=== PATIENT | female | born 1950 | race Caucasian/White ===

== ENCOUNTER 2019-12-04 21:25 | Inpatient (IN) | payer MEDICARE ==
[~2019-12-04] VITALS: Ht 170.2 cm; Wt 83.9 kg
[2019-12-04] MEDS ORDERED: ACETAMINOPHEN 325 MG TABLET PO PRN (23:30)
[2019-12-04] MEDS ORDERED: MAG HYDROX/AL HYDROX/SIMETH 30 ML UDC PO PRN (23:30)
[2019-12-04] MEDS ORDERED: ASPI-992 PO (23:35)
[2019-12-04] MEDS ORDERED: AMLO5TAB9 PO (23:36)
[2019-12-04] MEDS ORDERED: FLUO20CA42 PO (23:37)
[2019-12-04] MEDS ORDERED: LEVO150T8 PO (23:38)
[2019-12-04] MEDS ORDERED: CLON0.5T4 PO (23:39)
[2019-12-04] MEDS ORDERED: TRIA1TAB3 PO (23:40)
[2019-12-04] MEDS ORDERED: ROSU20TA32 PO (23:41)
[2019-12-04] MEDS ORDERED: LOSA50TA39 PO (23:42)
[2019-12-04] MEDS ORDERED: CLON0.1T PO (23:44)
[2019-12-04] MEDS ORDERED: BLOOD SUGAR DIAGNOSTIC 1 EACH STRIP IN ONE (23:45)
[2019-12-04] MEDS ORDERED: LEVO125T8 PO (23:46)
[2019-12-05 00:08] VITALS: BP 126/77
[2019-12-05] MEDS: TEMAZEPAM 7.5 MG CAPSULE PO PRN (00:17)
--- NOTE | 2019-12-05 00:20 | NUR ---
GPS RN NOTE: ADMITTING NOTE PT ARRIVED ON THE UNIT AT 22:45 ON 12/04/19, PT IS A 69 Y/O FEMALE THAT CAME FROM [facility], PT IS A ON A 5150 DUE TO GD, PER HOLD PT PRESENTED WITH DISORGANIZED THOUGHT PROCESS, LABILE, HYPERFOCUSED ON THAT SHE CLAIMS IS "COMMITTING TAX EVASION AND SHOULD BE IN ASSISTED" AND THAT HE DOES NOT LISTEN AND GIVES HER PROZAC PT STATED SHE HAS NOT BEEN SLEEPING THE LAST SEVERAL DAYS AND HAS NOT BEEN COMPLIANT WITH HER PSYCHOTROPIC MEDICATION AND HAS BEEN HAVING SOME DELUSIONAL THOUGHTS. PT IS A/OX X3, TEARFUL, WITHDRAWN, ISOLATIVE, GUARDED, FLAT, BLUNT AFFECT. PT HAS MEDICAL HX OF HTN, HYPOTHYROIDISM WELL HAVING A STROKE 2 YEARS AGO. PT HAS L SIDE MILD WEAKNESS, R SIDE HAS NO IMPAIRMENT, PT IS GAIT IS STEADY WITH ASSISTANCE, WALKER IS PLACED AT BEDSIDE, BED ALARM ON, BED IN LOCKED AND LOWEST POSITION, FALL PRECAUTIONS IMPLEMENTED. WHEN ASKING PT REASON FOR HOSPITALIZATION PT CONTINUES TO STATE "I SHOULDN'T BE HERE THIS IS A MISTAKE, MY BELONGS HERE". PT LIVES WITH HAS TWO DAUGHTERS WHO ARE OLDER AND HAVE MOVED OUT, PT STATES SHE STRUGGLES WITH DEPRESSION AND ANXIETY AT TIMES. PT STATED SHE AT TIMES HAS AUDITORY HALLUCINATIONS SHE STATES "SOMETIMES I HEAR VOICES TALK TO ME OR I HEAR SOMETHING THAT IS UPSTAIRS THAT ISN'T UPSTAIRS. PT DENIES FLU VACCINE, PT STATES "IT GETS ME SO SICK TO A POINT WHERE IT WILL PUT ME IN THE HOSPITAL, I DONT WANT IT". PT STATED SHE RECEIVED THE PNA VACCINE SOMETIMES THIS YEAR BUT CAN NOT REMEMBER WHEN. PT DENIES SI/HI, DENIES PAIN, STATES SHE HAS DIFFICULTY SLEEPING AND REQUESTED MEDICATION FOR THE INSOMNIA, ALL NEEDS MET AT THIS TIME. PT IS ADVISED OF THE HOLD, PTS RIGHT AND MEDICATION EDUCATION BOOKLET GIVEN TO THE PT AT BEDSIDE, PT IS MADE AWARE OF THE UNIT. PT WILL BE UNDER THE PSYCHIATRIC CARE OF DR. TIM AND MEDICAL CARE OF DR. RAMESH, WILL CONTINUE TO MONITOR THE PT Q15 MIN FOR SAFETY AND BEHAVIOR. Addendum: 12/05/19 at 0044 by ADONAY MERCEDES RN PT SIGNED NONDISCLOSURE SLIP, PT WISHED TO NOT HAVE OR FAMILY NOTIFIED REGARDING HER HOSPITALIZATION.
[2019-12-05] MEDS ORDERED: CLONIDINE HCL 0.1 MG TABLET PO PRN (00:30)
--- NOTE | 2019-12-05 00:37 | NUR ---
GPS RN NOTE: FLU VACCINE REFUSAL PT DENIES FLU VACCINE, PT STATES "IT GETS ME SO SICK TO A POINT WHERE IT WILL PUT ME IN THE HOSPITAL, I DONT WANT IT". PT STATED SHE RECEIVED THE PNA VACCINE SOMETIMES THIS YEAR BUT CAN NOT REMEMBER WHEN. WILL CONTINUE TO MONITOR Q15MIN FOR SAFETY AND BEHAVIOR.
--- NOTE | 2019-12-05 00:38 | NUR ---
GPS RN NOTE: INSOMNIA PT C/O OF INSOMNIA AND REQUESTED MEDICATION FOR IT, ADMINISTERED RESTORIL PRN AT 0017, WILL REASSESS AND CONTINUE TO MONITOR Q15MIN FOR SAFETY AND BEHAVIOR.
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
[2019-12-05] MEDS: clonazePAM 0.5 MG TABLET PO PRN ×2 (03:33→16:08)
--- NOTE | 2019-12-05 03:38 | NUR ---
GPS RN NOTE: ANXIETY PT REQUESTED KLONOPIN PRN TO HELP WITH HER RESTLESSNESS AND ANXIETY, ADMIN KLONOPIN PRN @ 0333, WILL REASSESS AND CONTINUE TO MONITOR Q15MIN FOR SAFETY AND BEHAVIOR,
[2019-12-05 06:41] LABS: BASOPHILS % (AUTO) 0.6 % (0.0-2.0); EOSINOPHILS % (AUTO) 4.4 % (0.0-6.0); HEMATOCRIT 43 % (33-45); HEMOGLOBIN 14.2 g/dL (11.5-14.8); LYMPHOCYTES # (AUTO) 2.4 /CMM (0.8-4.8); LYMPHOCYTES % (AUTO) 34.1 % (20.0-44.0); MEAN CORPUSCULAR HGB CONC 33 g/dl (31.0-36.0); MEAN CORPUSCULAR VOLUME 89 fL (82-100); MONOCYTES # (AUTO) 0.7 /CMM (0.1-1.30); MONOCYTES % (AUTO) 10.4 % (2.0-12.0); NEUTROPHILS # (AUTO) 3.5 /CMM (1.8-8.9); NEUTROPHILS % (AUTO) 50.5 % (43.0-81.0); PLATELET COUNT (AUTO) 287 /CMM (150-450); RED BLOOD CELL COUNT(AUTO) 4.77 MIL/uL (4.0-5.2)
[2019-12-05 07:12] LABS: CALCIUM, SERUM 9.7 mg/dL (8.5-10.1); CREATININE 0.8 mg/dL (0.6-1.3); POTASSIUM 4.3 mmol/L (3.5-5.1)
[2019-12-05 07:21] LABS: THYROID STIMULATING HORMONE 1.178 uIU/mL (0.358-3.74)
[2019-12-05] MEDS: LEVOTHYROXINE SODIUM 125 MCG TABLET PO SCH (07:53)
[2019-12-05 08:00] VITALS: BP 152/90
--- NOTE | 2019-12-05 08:04 | NUR ---
Dr. Chambers gave an order to change service to Dr. Pichardo.
[2019-12-05] MEDS: ASPIRIN 325 MG TABLET PO SCH (08:48)
[2019-12-05] MEDS: LOSARTAN POTASSIUM 50 MG TABLET PO SCH (08:48)
--- NOTE | 2019-12-05 10:29 | NUR ---
CONSENT: Pt signed Non-Disclosure of information form. However, per [facility] guidelines, SW has to notify of pts admission and provide information due to pt being placed on a 5150 hold for [facility]. is also pts DPOA.
--- NOTE | 2019-12-05 11:06 | NUR ---
INITIAL DISCHARGE PLAN: Pt currently resides with her at address on face sheet ([address] [place] [address]; [phone]). Per pt she would like to return home when cleared for discharge by psychiatric staff. Per Kyrie ([phone]), he does not want pt to be discharged to a SNF or other stepdown facility. JAMEEL will collaborate with for safe and proper discharge plan.
--- NOTE | 2019-12-05 11:08 | NUR ---
FAMILY CONTACT: SW contacted pt's Kyrie ([phone]) who reports desire for pt to be discharged to [facility] for further evaluation, but is agreeable to discharge back to home if pt is unable to discharge to [facility]. JAMEEL explained difficulty in transfering pt from hospital to hospital and obtained agreement from Kyrie for pt to return home if in stable condition. Pt's Kyrie is adament that pt's neurological MD, Dr. Sixto Lozano ([phone]), be involved in pt's care. JAMEEL will continue to work with pt, pt's , and [facility] staff to devise appropriate and safe discharge plan. SW to remain available to check in with patient as time permits.
[2019-12-05] MEDS: TRIAMTERENE/HYDROCHLOROTHIAZID (37.5/25MG) 1 UDCAP PO SCH (11:44)
[2019-12-05 16:00] VITALS: BP_SYST 151; BP_SYST 88; BP_DIAS 51; BP_DIAS 81
--- NOTE | 2019-12-05 16:10 | NUR ---
Pt. is anxious and tearful. Klonopin 0.5 mg po prn given.
[2019-12-05] MEDS: AMLODIPINE BESYLATE 5 MG TABLET PO SCH (17:47)
[2019-12-05 19:53] VITALS: BP 125/69
[2019-12-05] MEDS: risperiDONE 1 MG TABLET PO SCH (21:00)
[2019-12-05] MEDS: ATORVASTATIN 40 MG TABLET PO SCH (21:43)
[2019-12-05] MEDS: MAGNESIUM HYDROXIDE 30 ML UDC PO PRN (22:01)
--- NOTE | 2019-12-05 22:06 | NUR ---
GPS RN NOTE: CONSTIPATION PT STATED SHE HAS NOT HAD A BM FOR SEVERAL DAYS REQUESTED SOMETHING FOR IT,OFFERED PRUNE JUICE PT DECLINED, PT TOOK MILK OF MAGNESIA FORREST @ 2201, WILL REASSESS AND CONTINUE TO MONITOR Q15MIN FOR SAFETY AND BEHAVIOR
[2019-12-06] MEDS: clonazePAM 0.5 MG TABLET PO PRN ×2 (02:07→08:22)
--- NOTE | 2019-12-06 02:12 | NUR ---
GPS RN NOTE: ANXIETY PT WOKE UP TEARFUL, ANXIOUS, IRRITABLE, OFFERED KLONOPIN, ADMIN BARTOLO PRN @ 1248, WILL REASSESS AND CONTINUE TO MONITOR Q15MIN FOR SAFETY AND BEHAVIOR.
[2019-12-06] MEDS: LEVOTHYROXINE SODIUM 125 MCG TABLET PO SCH (07:45)
[2019-12-06 08:00] VITALS: BP 146/75
[2019-12-06] MEDS: FLUOXETINE HCL 20 MG CAPSULE PO SCH (08:22)
[2019-12-06] MEDS: risperiDONE 1 MG TABLET PO SCH ×2 (08:22→21:15)
[2019-12-06] MEDS: ASPIRIN 325 MG TABLET PO SCH (08:22)
[2019-12-06] MEDS: LOSARTAN POTASSIUM 50 MG TABLET PO SCH (08:25)
[2019-12-06] MEDS: TRIAMTERENE/HYDROCHLOROTHIAZID (37.5/25MG) 1 UDCAP PO SCH (08:25)
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
--- NOTE | 2019-12-06 09:00 | NUR ---
RN NOTE- PT CRYING, ANXIOUS, STATING COMMITTED CRIMES, PO INTAKE FAIR, MED COMPLIANT, DENYING SI HI AH VH WITHDRAWN, CONFUSED
--- NOTE | 2019-12-06 09:15 | NUR ---
Dr. Colin in the unit and read the [facility] Directives and per MD pt. is still full code. Per pt. doesn't have terminal disease.
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
[2019-12-06 16:03] VITALS: BP 120/71
[2019-12-06] MEDS: AMLODIPINE BESYLATE 5 MG TABLET PO SCH (17:25)
[2019-12-06 19:36] VITALS: BP 107/57
[2019-12-06 19:41] VITALS: BP 107/57
--- NOTE | 2019-12-06 21:15 | NUR ---
GPS RN NOTE: SEEN BY DR. MASSEY PATIENT WAS SEEN BY DR. MASSEY WITH NO NEW ORDER TONIGHT.
[2019-12-06] MEDS: ATORVASTATIN 40 MG TABLET PO SCH (21:35)
--- NOTE | 2019-12-07 05:15 | NUR ---
GPS RN NOTE PATIENT'S NENO RODRIGUEZ CALLED TO GET AN UPDATE REGARDING PATIENT'S CONDITION & STATED THAT HE WOULD CALL BACK AGAIN DURING DAY TIME. NENO ALSO LIKES TO BE NOTIFIED IF THERE IS ANY MED CHANGE. WILL ENDORSE TO AM RN.
[2019-12-07 08:02] VITALS: BP 120/66
[2019-12-07] MEDS: TRIAMTERENE/HYDROCHLOROTHIAZID (37.5/25MG) 1 UDCAP PO SCH (09:00)
[2019-12-07] MEDS: LEVOTHYROXINE SODIUM 125 MCG TABLET PO SCH (09:19)
[2019-12-07] MEDS: ASPIRIN 325 MG TABLET PO SCH (09:19)
[2019-12-07] MEDS: risperiDONE 1 MG TABLET PO SCH ×2 (09:20→20:56)
[2019-12-07] MEDS: LOSARTAN POTASSIUM 50 MG TABLET PO SCH (09:20)
[2019-12-07] MEDS: FLUOXETINE HCL 20 MG CAPSULE PO SCH (09:23)
[2019-12-07] MEDS: clonazePAM 0.5 MG TABLET PO PRN (11:06)
--- NOTE | 2019-12-07 11:16 | NUR ---
teary eyed and ruminating about stroke and home situation.medicated with klonopin 0.5 mg po.
[2019-12-07 14:50] VITALS: BP 89/60
--- NOTE | 2019-12-07 14:50 | NUR ---
pt. sluggish and is getting up to commode to void with assistance.bp 89/60 heart rate 65,pox 96%.pt. quickly assisted back to bed,then put in supine position.alert and oriented x3.weak.
[2019-12-07 14:53] VITALS: BP 116/60
--- NOTE | 2019-12-07 14:53 | NUR ---
assisted back to bed vs retaken.cold cloth to head,states a little pain in rt. eye.
[2019-12-07] MEDS: MAGNESIUM HYDROXIDE 30 ML UDC PO PRN (15:52)
[2019-12-07 16:00] VITALS: BP 104/64
--- NOTE | 2019-12-07 16:40 | NUR ---
given mom,states no bm for sometime.
[2019-12-07] MEDS: AMLODIPINE BESYLATE 5 MG TABLET PO SCH (16:47)
--- NOTE | 2019-12-07 19:53 | NUR ---
radio program checker initial notes received report from am nurse and seen pt in bed resting comfortably calmed and quiet . no signs of any distress noted. kept her warm and comfortable at all times. will continue Q 15 minutes monitoring for safety and behavior.
[2019-12-07 20:05] VITALS: BP 114/64
[2019-12-07] MEDS: ATORVASTATIN 40 MG TABLET PO SCH (20:56)
--- NOTE | 2019-12-08 06:54 | NUR ---
student life dean closing notes pt remain sleeping , not in any distress noted. Stable throughout the night and no behavioral issue to report at this time. Compliance with her medication and all due meds given. slept well. kept her warm and comfortable at all times. will continue Q 15 minutes monitoring for safety and behavior. will endorse to am nurse for continuity of care.
[2019-12-08] MEDS: LEVOTHYROXINE SODIUM 125 MCG TABLET PO SCH (07:43)
[2019-12-08 08:00] VITALS: BP 134/86
[2019-12-08] MEDS: FLUOXETINE HCL 20 MG CAPSULE PO SCH (08:23)
[2019-12-08] MEDS: ASPIRIN 325 MG TABLET PO SCH (08:23)
[2019-12-08] MEDS: clonazePAM 0.5 MG TABLET PO PRN (08:23)
[2019-12-08] MEDS: risperiDONE 1 MG TABLET PO SCH ×2 (08:23→21:00)
[2019-12-08] MEDS: LOSARTAN POTASSIUM 50 MG TABLET PO SCH (08:23)
--- NOTE | 2019-12-08 08:24 | NUR ---
RN NOTE- ANXIETY CONTINUED STRESS AND AGITATION REGARDING , KLONOPIN 0.5 MG GIVEN
[2019-12-08] MEDS: TRIAMTERENE/HYDROCHLOROTHIAZID (37.5/25MG) 1 UDCAP PO SCH (08:25)
--- NOTE | 2019-12-08 09:00 | NUR ---
RN NOTE- PT PARANOID, CONFUSED WITH DISORGANIZED THOUGHTS, DENIES ALL, FOCUS ON ,"HES A CRIMINAL" REDIRECTION PRN
--- NOTE | 2019-12-08 10:00 | NUR ---
RN SID- BARTOLO EFFECTIVELY DECREASED ANXIETY. PT RESTING QUIETLY
[2019-12-08] MEDS: MAGNESIUM HYDROXIDE 30 ML UDC PO PRN (11:06)
--- NOTE | 2019-12-08 11:06 | NUR ---
RN NOTE- C/O NO BM X THREE DAYS. MOM 30 CC GIVEN. WILL CONTACT MD IF INEFFECTIVE THIS IS SECOND ADMINISTRATION MOM
[2019-12-08] MEDS ORDERED: MAGNESIUM CITRATE 296 ML BOTTLE PO ONE (11:30)
--- NOTE | 2019-12-08 12:28 | NUR ---
RN NOTE- NO BM RESULTS W MOM. MAG CITRATE GIVEN AT THIS TIME
[2019-12-08 16:00] VITALS: BP 125/75
--- NOTE | 2019-12-08 16:00 | NUR ---
RN NOTE- NO BM W MAG CITRATE ADMINISTRATION. PT WANTS TO EAT DINNER BEFORE FURTHER INTERVENTIONS
[2019-12-08] MEDS: AMLODIPINE BESYLATE 5 MG TABLET PO SCH (17:37)
--- NOTE | 2019-12-08 19:38 | NUR ---
GPS RN OPENING NOTES PATIENT RECEIVED RESTING IN BED COMFORTABLY; A/OX2-3, AWAKE, IN BED; CALM AND COOPERATIVE; NO COMPLAINTS OF PAIN AT THIS TIME; NO DISTRESS NOTED; PATIENT DENIES SI/HI AT THIS TIME; PATIENT TOLERATING ROOM AIR WELL; NO SOB NOTED; BREATHING EVEN AND UNLABORED; PATIENT EDUCATED ON USE OF CALL LIGHT, SAFETY PRECAUTIONS IMPLEMENTED; BED LOCKED IN LOW POSITION; SIDE RAILSX2; WILL CONTINUE TO MONITOR Q15 MINS WITH THE HELP OF STAFF TO MAINTAIN SAFETY
[2019-12-08 20:00] VITALS: BP 149/79
[2019-12-08] MEDS: ATORVASTATIN 40 MG TABLET PO SCH (21:02)
[2019-12-09] MEDS: LEVOTHYROXINE SODIUM 125 MCG TABLET PO SCH (07:20)
[2019-12-09 08:00] VITALS: BP 130/74
[2019-12-09] MEDS: FLUOXETINE HCL 20 MG CAPSULE PO SCH (08:27)
[2019-12-09] MEDS: TRIAMTERENE/HYDROCHLOROTHIAZID (37.5/25MG) 1 UDCAP PO SCH (08:27)
[2019-12-09] MEDS: risperiDONE 1 MG TABLET PO SCH ×2 (08:28→20:23)
[2019-12-09] MEDS: LOSARTAN POTASSIUM 50 MG TABLET PO SCH (08:28)
[2019-12-09] MEDS: ASPIRIN 325 MG TABLET PO SCH (08:28)
--- NOTE | 2019-12-09 09:00 | NUR ---
RN NOTE- BETTER THIS MORNING, INTERACTIVE, OUT OF BED AND WALKING IN HALLS W FWW, STEADY GAIT, MED COMPLIANT, PO INTAKE FAIR THIS MORNING. STILL W PERSISTENT DELUSION BELIEVES HER IS CAUSING HER TO BE KELP IN HOSPITAL . REASSURED THIS IS NOT THE CASE. REALITY ORIENTATION
[2019-12-09 16:00] VITALS: BP 106/61
[2019-12-09] MEDS: AMLODIPINE BESYLATE 5 MG TABLET PO SCH (17:11)
[2019-12-09 19:44] VITALS: BP 106/91
[2019-12-09 20:04] VITALS: BP 106/61
[2019-12-09] MEDS: ATORVASTATIN 40 MG TABLET PO SCH (20:23)
--- NOTE | 2019-12-09 21:00 | NUR ---
PARANOID WHEN GIVEN HER RISPERADOL AND ORDERED LIPITOR SHE QUESTIONED IF THESES WERE ORDERED BY THE DOCTOR, AND IF THEY WERE MEDICATIONS ON HER LIST, SHE PROCEEDED TO CHECK HER HER LIST, AND ASKING IF SHE HAD THEM BEFORE. SHE STATED "RISPERADOL CAN CAUSE ME TO HAVE A STROKE", REASSURED HER THE MD IS AWARE OF HER HX AND HE IS THE ONE WHO ORDERED RISPERADOL. SHE DID TAKE HER PM MEDICATION AND DID REQUEST A SLEEPING PILL, RETORIL GIVEN AND EFFECTIVE.
[2019-12-09] MEDS: TEMAZEPAM 7.5 MG CAPSULE PO PRN (21:25)
[2019-12-10] MEDS: LEVOTHYROXINE SODIUM 125 MCG TABLET PO SCH (07:10)
[2019-12-10 08:00] VITALS: BP 142/76
[2019-12-10] MEDS: risperiDONE 1 MG TABLET PO SCH ×2 (08:21→20:19)
[2019-12-10] MEDS: FLUOXETINE HCL 20 MG CAPSULE PO SCH (08:21)
[2019-12-10] MEDS: ASPIRIN 325 MG TABLET PO SCH (08:21)
[2019-12-10] MEDS: TRIAMTERENE/HYDROCHLOROTHIAZID (37.5/25MG) 1 UDCAP PO SCH (08:27)
[2019-12-10] MEDS: LOSARTAN POTASSIUM 50 MG TABLET PO SCH (08:27)
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
--- NOTE | 2019-12-10 14:17 | NUR ---
Family Contact: SW contacted pt's Kyrie ([phone]) and left a voicemail message stating that the SW would like to speak to him regarding the pts treatment.
--- NOTE | 2019-12-10 15:55 | NUR ---
Family Contact: SW contacted pt's Kyrie ([phone]) and inquired about the pts discharge plan. Pts provided a full history of the pt and then informed the SW that he only wants the pt home if she is stable at the time of discharge. At this point in time he stated that based off of the nursing reports she cannot come home. SW stated that they will need to find alternative placement just in case and she stated that she speak to the pts primary MD about assisted recommendations as the pts only trusts the pts MD. SW stated that she will keep him updated.
[2019-12-10 16:00] VITALS: BP 108/46
[2019-12-10] MEDS: AMLODIPINE BESYLATE 5 MG TABLET PO SCH (18:00)
[2019-12-10 19:57] VITALS: BP 114/57
[2019-12-10] MEDS: ATORVASTATIN 40 MG TABLET PO SCH (21:26)
[2019-12-10] MEDS: TEMAZEPAM 7.5 MG CAPSULE PO PRN (21:27)
--- NOTE | 2019-12-10 21:35 | NUR ---
GPS RN NOTE: INSOMNIA PT C/O OF INSOMNIA AND ASKED IF SHE CAN TAKE HER SLEEPING MEDICATION, VSS, ADMIN RESTORIL @ 2126, WILL REASSESS AND CONTINUE TO MONITOR Q15MIN FOR SAFETY AND BEHAVIOR
[2019-12-11] MEDS: LEVOTHYROXINE SODIUM 125 MCG TABLET PO SCH (06:35)
[2019-12-11] MEDS: clonazePAM 0.5 MG TABLET PO PRN (06:35)
--- NOTE | 2019-12-11 07:10 | NUR ---
GPS RN NOTE: ANXIETY PT WAS C/O OF RESTLESNESS, ANXIETY, ADMIN KLONOPIN PRN , WILL REASSESS AND CONTINUE TO MONITOR Q15MIN FOR SAFETY AND BEHAVIOR.
[2019-12-11 08:00] VITALS: BP 141/76
[2019-12-11] MEDS: TRIAMTERENE/HYDROCHLOROTHIAZID (37.5/25MG) 1 UDCAP PO SCH (10:19)
[2019-12-11] MEDS: ASPIRIN 325 MG TABLET PO SCH (10:19)
[2019-12-11] MEDS: FLUOXETINE HCL 20 MG CAPSULE PO SCH (10:20)
[2019-12-11] MEDS: risperiDONE 1 MG TABLET PO SCH ×2 (10:20→20:21)
--- NOTE | 2019-12-11 10:43 | NUR ---
Family Contact: Pt's Kyrie ([phone]) called the SW and stated that he understands that there is a medication change for the pt that he understands will assist with the pts psychosis and that he does not trust SNF and so he would rather take the pt home at the time of discharge.
[2019-12-11] MEDS: LOSARTAN POTASSIUM 50 MG TABLET PO SCH (12:45)
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
[2019-12-11 16:00] VITALS: BP 126/80
[2019-12-11] MEDS: AMLODIPINE BESYLATE 5 MG TABLET PO SCH (17:49)
--- NOTE | 2019-12-11 18:00 | NUR ---
MED COMPLIANT,COOPERATIVE AND LESS ISOLATIVE.
[2019-12-11 20:00] VITALS: BP 132/77
[2019-12-11] MEDS: ATORVASTATIN 40 MG TABLET PO SCH (21:32)
[2019-12-12 08:00] VITALS: BP 128/58
[2019-12-12] MEDS: ASPIRIN 325 MG TABLET PO SCH (08:33)
[2019-12-12] MEDS: LOSARTAN POTASSIUM 50 MG TABLET PO SCH (08:33)
[2019-12-12] MEDS: risperiDONE 1 MG TABLET PO SCH ×2 (08:34→20:57)
[2019-12-12] MEDS: LEVOTHYROXINE SODIUM 125 MCG TABLET PO SCH (08:34)
[2019-12-12] MEDS: FLUOXETINE HCL 20 MG CAPSULE PO SCH (08:34)
[2019-12-12] MEDS: TRIAMTERENE/HYDROCHLOROTHIAZID (37.5/25MG) 1 UDCAP PO SCH (08:37)
[2019-12-12 11:24] VITALS: BP 121/68
[2019-12-12 16:00] VITALS: BP 143/72
[2019-12-12 17:37] VITALS: BP 128/64
[2019-12-12] MEDS: AMLODIPINE BESYLATE 5 MG TABLET PO SCH (17:37)
[2019-12-12 20:19] VITALS: BP 138/68
[2019-12-12] MEDS: ATORVASTATIN 40 MG TABLET PO SCH (21:01)
[2019-12-12] MEDS: TEMAZEPAM 7.5 MG CAPSULE PO PRN (23:02)
--- NOTE | 2019-12-12 23:02 | NUR ---
GPS-RN NOTE: INSOMNIA PATIENT C/O INABILITY TO SLEEP. ADMINISTERED RESTORIL 7.5MG PO ORDERED PER PATIENT'S REQUEST. WILL CONTINUE TO MONITOR FOR PT'S SAFETY.
[2019-12-13 08:08] VITALS: BP 120/69
[2019-12-13] MEDS: LEVOTHYROXINE SODIUM 125 MCG TABLET PO SCH (08:34)
[2019-12-13] MEDS: LOSARTAN POTASSIUM 50 MG TABLET PO SCH (08:34)
[2019-12-13] MEDS: risperiDONE 1 MG TABLET PO SCH ×2 (08:34→20:11)
[2019-12-13] MEDS: ASPIRIN 325 MG TABLET PO SCH (08:35)
[2019-12-13] MEDS: TRIAMTERENE/HYDROCHLOROTHIAZID (37.5/25MG) 1 UDCAP PO SCH (08:38)
[2019-12-13] MEDS ORDERED: FLUOXETINE HCL 20 MG CAPSULE PO SCH (09:00)
[2019-12-13] MEDS: Fluoxetine 10 mg capsule PO SCH (09:05)
[2019-12-13 16:00] VITALS: BP 107/67
[2019-12-13] MEDS: AMLODIPINE BESYLATE 5 MG TABLET PO SCH (17:10)
[2019-12-13 19:57] VITALS: BP 140/61
[2019-12-13] MEDS: ATORVASTATIN 40 MG TABLET PO SCH (22:12)
[2019-12-13] MEDS: TEMAZEPAM 7.5 MG CAPSULE PO PRN (22:12)
[2019-12-14 08:00] VITALS: BP 137/76
[2019-12-14] MEDS: Fluoxetine 10 mg capsule PO SCH (08:30)
[2019-12-14] MEDS: ASPIRIN 325 MG TABLET PO SCH (08:30)
[2019-12-14] MEDS: LEVOTHYROXINE SODIUM 125 MCG TABLET PO SCH (08:30)
[2019-12-14] MEDS: LOSARTAN POTASSIUM 50 MG TABLET PO SCH (08:30)
[2019-12-14] MEDS: TRIAMTERENE/HYDROCHLOROTHIAZID (37.5/25MG) 1 UDCAP PO SCH (08:34)
[2019-12-14] MEDS: risperiDONE 1 MG TABLET PO SCH ×2 (08:35→20:45)
[2019-12-14 16:00] VITALS: BP 124/70
[2019-12-14] MEDS: clonazePAM 0.5 MG TABLET PO PRN (17:00)
--- NOTE | 2019-12-14 17:00 | NUR ---
rn notes administered Klonopin 0.5 mg po prn for anxiety, v/s taken bp 124/70, p-84, continued monitoring.
[2019-12-14 17:48] VITALS: BP 119/69
[2019-12-14] MEDS: AMLODIPINE BESYLATE 5 MG TABLET PO SCH (17:48)
[2019-12-14 21:02] VITALS: BP 128/67
[2019-12-14] MEDS: ATORVASTATIN 40 MG TABLET PO SCH (21:58)
[2019-12-14] MEDS: TEMAZEPAM 7.5 MG CAPSULE PO PRN (21:59)
--- NOTE | 2019-12-15 07:03 | NUR ---
GPS RN CLOSING NOTES: PT LAYING ON BED SLEEPING. SLEPT 8HR THIS SHIFT. MED COMPLIANT THIS SHIFT. NO S/S OF DISTRESS. RESPIRATION EVEN AND UNLABORED WITH EQUAL RISE AND FALL OF THE CHEST ON ROOM AIR. ALL PT CARE NEEDS MET ANTICIPATED. BED IS LOCKED AND IN LOWEST POSITION. WILL CONTINUE TO MONITOR AND ENDORSE TO AM SHIFT
[2019-12-15 08:00] VITALS: BP 139/76
[2019-12-15] MEDS: risperiDONE 1 MG TABLET PO SCH ×2 (09:02→20:08)
[2019-12-15] MEDS: LEVOTHYROXINE SODIUM 125 MCG TABLET PO SCH (09:02)
[2019-12-15] MEDS: ASPIRIN 325 MG TABLET PO SCH (09:02)
[2019-12-15] MEDS: Fluoxetine 10 mg capsule PO SCH (09:02)
[2019-12-15] MEDS: LOSARTAN POTASSIUM 50 MG TABLET PO SCH (09:02)
[2019-12-15] MEDS: TRIAMTERENE/HYDROCHLOROTHIAZID (37.5/25MG) 1 UDCAP PO SCH (09:03)
[2019-12-15 16:00] VITALS: BP 104/62
[2019-12-15] MEDS: AMLODIPINE BESYLATE 5 MG TABLET PO SCH (18:00)
[2019-12-15 20:25] VITALS: BP 100/61
[2019-12-15] MEDS: TEMAZEPAM 7.5 MG CAPSULE PO PRN (22:08)
[2019-12-15] MEDS: ATORVASTATIN 40 MG TABLET PO SCH (22:08)
--- NOTE | 2019-12-16 06:24 | NUR ---
GPS RN CLOSING NOTES: PT LAYING ON BED SLEEPING. WEEKLY SKIN ASSESSMENT DONE, PICTURES TAKEN PLACED IN PATIENT CHART. SLEPT 8HR THIS SHIFT. NO S/S OF DISTRESS. RESPIRATION EVEN AND UNLABORED WITH EQUAL RISE AND FALL OF THE CHEST ON ROOM AIR. ALL PT CARE NEEDS MET ANTICIPATED. BED IS LOCKED AND IN LOWEST POSITION. WILL CONTINUE TO MONITOR AND ENDORSE TO AM SHIFT.
[2019-12-16 08:00] VITALS: BP 135/55
[2019-12-16] MEDS: Fluoxetine 10 mg capsule PO SCH (08:20)
[2019-12-16] MEDS: LEVOTHYROXINE SODIUM 125 MCG TABLET PO SCH (08:20)
[2019-12-16] MEDS: risperiDONE 1 MG TABLET PO SCH ×2 (08:20→19:23)
[2019-12-16] MEDS: LOSARTAN POTASSIUM 50 MG TABLET PO SCH (08:20)
[2019-12-16] MEDS: ASPIRIN 325 MG TABLET PO SCH (08:20)
[2019-12-16] MEDS: TRIAMTERENE/HYDROCHLOROTHIAZID (37.5/25MG) 1 UDCAP PO SCH (08:22)
--- NOTE | 2019-12-16 13:47 | NUR ---
GPS RN NOTE: PT COMPLAINT OF CONSTIPATION T.O. DR RAGSDALE MAGNESIUM CITRATE 296 MG ONCE ORDER PLACED AND CARED OUT WILL CONTINUE MONITORING
[2019-12-16] MEDS ORDERED: MAGNESIUM CITRATE 296 ML BOTTLE PO ONE (14:00)
[2019-12-16 16:00] VITALS: BP 117/64
--- NOTE | 2019-12-16 16:10 | NUR ---
Family Contact: Pt's Kyrie ([phone]) agreed to picking machine operator helper pt at 12pm
[2019-12-16] MEDS: AMLODIPINE BESYLATE 5 MG TABLET PO SCH (17:18)
[2019-12-16 20:04] VITALS: BP 124/80
[2019-12-16] MEDS: TEMAZEPAM 7.5 MG CAPSULE PO PRN (21:30)
[2019-12-16] MEDS: ATORVASTATIN 40 MG TABLET PO SCH (21:30)
--- NOTE | 2019-12-17 07:30 | NUR ---
GPS RN NOTE PATIENT IN BED RESTING COMFORTABLY. PATIENT IN NO ACUTE DISTRESS. NO SOB NOTED. PATIENT BREATHING IS EVEN AND UNLABORED. SAFETY PRECAUTIONS IN PLACE. PATIENT BED IS LOCKED AND IN LOWEST POSITION. BED ALARM IS ON. WILL CONTINUE TO MONITOR.
[2019-12-17 08:00] VITALS: BP 114/65
--- NOTE | 2019-12-17 08:03 | NUR ---
SW Discharge Note: Patient will be discharged home [address] [place] [address]; ([phone]. Patients LAURYN Mittal ([phone]) will pickup driver pt at 12PM. Pt is aware and agreeable and is alert and oriented x3-4. Upon discharge, patient appear to be calm, cooperative and happy to be going home. Patient denies suicidal and homicidal ideation. Patient will follow up with (Yarn Spooler) Dr. Hope [address] [place] [address] [address] [place] [address]; ([phone]) has an apt on December [address] Hope (Yarn Spooler) will monitor her psychotropic medications and will refer pt to a psychiatrist. Patient presented with euthymic and congruent mood.
[2019-12-17] MEDS: ASPIRIN 325 MG TABLET PO SCH (08:23)
[2019-12-17] MEDS: LOSARTAN POTASSIUM 50 MG TABLET PO SCH (08:23)
[2019-12-17] MEDS: risperiDONE 1 MG TABLET PO SCH (08:24)
[2019-12-17] MEDS: LEVOTHYROXINE SODIUM 125 MCG TABLET PO SCH (08:24)
[2019-12-17] MEDS: Fluoxetine 10 mg capsule PO SCH (08:24)
[2019-12-17 08:25] VITALS: BP 114/65
[2019-12-17] MEDS: TRIAMTERENE/HYDROCHLOROTHIAZID (37.5/25MG) 1 UDCAP PO SCH (08:25)
--- NOTE | 2019-12-17 12:23 | NUR ---
GPS AUTOMATIC LINE SET UP MECHANIC NOTE PATIENT CLEARED FOR DISCHARGED. PATIENT IN NO ACUTE DISTRESS. NO SOB NOTED. PATIENT BREATHING IS EVEN AND UNLABORED. PATIENT DC INSTRUCTIONS PROVIDED. PATIENT VERBALIZED UNDERSTANDING AND DC PAPER WORK PROVIDED. PER HE IS AWARE AND SPOKE WITH PSYCHIATRIC MD AND IS UPDATED ON DISCHARGE PLAN AND IS CLEARED BY MEDICAL MD. PATIENT REFUSED SKIN ASSESSMENT. EDUCATED RISKS VS BENEFITS. PATIENT CONTINUED TO REFUSE. ID BAND REMOVED. PATIENT BELONGINGS WITH HER AND BELONGINGS LIST SIGNED. PATIENT GOING BACK HOME WITH . ALL DUE MEDS EXPLAINED. PATIENT KEPT CLEAN, DRY , AND COMFORTABLE THROUGHOUT SHIFT. NEEDS AND CONCERNS ADDRESSED. MD AWARE OF DISCHARGE.
== END 2019-12-17 12:25 | disposition home or self-care (01) | DRG 885 ==
LOC: GPS 22:38
PROVIDERS: ADMIT Psychiatry & Neurology Psychiatry; ATTEND Internal Medicine
DX: F25.9 Schizoaffective disorder, unspecified (principal); F41.9 Anxiety disorder, unspecified; F29 Unspecified psychosis not due to a substance or known physiological condition; F31.9 Bipolar disorder, unspecified; Z73.6 Limitation of activities due to disability; E03.9 Hypothyroidism, unspecified; E78.5 Hyperlipidemia, unspecified; I10 Essential (primary) hypertension; Z86.73 Personal history of transient ischemic attack (TIA), and cerebral infarction without residual deficits; Z91.14 Patient's other noncompliance with medication regimen
CPT/HCPCS: 36415; 80048-TC; 80061-TC; 82962-TC; 84443-TC; 85025-TC; 87081-TC; 97112-TC; 97116-TC; 97530-TC